=== PATIENT | male | born 1990 | race Caucasian/White ===

== ENCOUNTER 2023-11-11 11:49 | Emergency (ER) | payer BC, SELFPAY ==
[2023-11-11 11:53] VITALS: BP 116/71; PULSE 72; RESP 16; TEMP 36.6; O2SAT 96; BMI 33.2
--- NOTE | 2023-11-11 12:14 | ED_ITS ---
HPI - General Adult General Chief complaint: Dizziness/Vertigo Stated complaint: Vertigo, slight headache, weakness Time Seen by Provider: 11/11/23 11:54 Source: patient Mode of arrival: ambulatory Limitations: no limitations History of Present Illness HPI narrative: 33-year-old male, generally healthy, presents today with an episode of vertigo. 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 He was on the ground for about 30 seconds. He did notice that if he did not move, that the vertigo go away completely and would return slightly if he moved his head from side to side. He was able to get up go into the post office drop off his back edge as intended and then drive home. He states that his vertigo has passed but he feels just slightly lightheaded with a headache that he describes as a 1/10. He denies any diplopia or tinnitus. No vomiting. He did feel slightly nauseated when this occurred. He denies any recent illness, fevers or chills. He does not take any medicat ions. This has never happened to him before. Currently he is asymptomatic but want to discuss what happened to him. Patient does state that he had several drinks last evening. And he drinks 2 energy drinks and cup of coffee at least per day. States that he feels as if he slept well last night. His father has a history of seizure disorder. Related Data Home Medications Medication Instructions Recorded Confirmed No Known Home Medications 11/11/23 11/11/23 Allergies Allergy/AdvReac Type Severity Reaction Status Date / Time amoxicillin Allergy Unknown Verified 11/11/23 11:58 cat dander Allergy Unknown Verified 11/11/23 11:58 guinea pigs Allergy Unknown Uncoded 11/11/23 11:58 Review of Systems Status of ROS: Reports: 10 or more systems reviewed and unremarkable except as noted in History and below Exam Narrative: Exam Narrative: Well-nourished well-developed patient in no acute distress. Alert and oriented. Answers questions appropriately. Mood and affect are appropriate. Thoughts are goal oriented and rational. No tangential or magical thinking noted. Patient speaks in full sentences without needing to catch his breath. Speech is not slurred or pressured. HEENT: Normocephalic atraumatic. Pupils are equally round reactive to light. Extraocular muscles are intact. Conjunctivae are moist without any icterus noted. Moist mucous membranes. Posterior pharynx is normal. Neck is soft without any lymphadenopathy or thyromegaly. No masses are appreciated. TMs are clear bilaterally. Cardiovascular: Heart is regular rate and rhythm S1 and S2 are present without any murmurs. Lungs: Clear to auscultation bilaterally no wheezes rhonchi or rales are appreciated. Patient takes deep breaths without any discomfort. Extremities: Bilateral lower extremities are without edema. Skin: Well perfused without any obvious rashes. Strength is 5/5 of the upper and lower extremities. Reflexes are 2+ and symmetric at the knees. Romberg sign is negative. Cranial nerves 3-12 are normal. There is no nystagmus either horizontally or vertically. Gait is normal. Hallpike maneuver is negative, I cannot elicit any vertigo today. Const: Vital Signs, click to edit/add: Vital Signs - 24 hr 11/11/23 11:53 Temperature 97.9 F Pulse Rate [Pulse Oximeter] 72 Respiratory Rate 16 Blood Pressure [Ri ght Upper Arm] 116/71 Pulse Oximetry 96 Oxygen Delivery Me thod Room Air Course Vital Signs Vital signs: Initial Vital Signs Temperature 97.9 F 11/11/23 11:53 Temperature Source Temporal Artery Scan 11/11/23 11:53 Pulse Rate 72 11/11/23 11:53 Respiratory Rate 16 11/11/23 11:53 Blood Pressure 116/71 11/11/23 11:53 Blood Pressure Mean 86 11/11/23 11:53 Blood Pressure Position Sitting 11/11/23 11:53 Pulse Oximetry 96 11/11/23 11:53 Oxygen Delivery Method Room Air 11/11/23 11:53 Vital Signs Temperature 97.9 F 11/11/23 11:53 Pulse Rate 72 11/11/23 11:53 Respiratory Rate 16 11/11/23 11:53 Blood Pressure 116/71 11/11/23 11:53 Pulse Oximetry 96 11/11/23 11:53 Oxygen Delivery Method Room Air 11/11/23 11:53 Temperature 97.9 F 11/11/23 11:53 Pulse Rate 72 11/11/23 11:53 Respiratory Rate 16 11/11/23 11:53 Blood Pressure 116/71 11/11/23 11:53 Pulse Oximetry 96 11/11/23 11:53 Oxygen Delivery Method Room Air 11/11/23 11:53 Medical Decision Making MDM Narrative Medical decision making narrative: 33-year-old male with an episode of vertigo now resolved. We discussed causes of vertigo. We discussed reducing caffeine intake, increasing water intake. We discussed diet and exercise which she had several questions about. At this point I do not think that the patient is having a stroke which would be the most serious cause of vertigo at this time. Given that he is asymptomatic I do not think that there is any concern for vertebral artery dissection or other life- threatening cause of his symptoms today. Discharge Plan Discharge Clinical Impression: Vertigo Patient Disposition: Home, Self-Care Condition: Improved Additional Instructions: Recommendations: Increase daily water intake Decrease daily caffeine intake Increase cardiovascular exercise -where the heart is pumping and you are sweating- to 30 minutes daily. Follow-up with your primary care provider if this occurs again. Prescriptions: No Action No Known Home Medications Stand Alone Forms: [employer] Info Instructions
== END 2023-11-11 12:36 | disposition home or self-care (01) ==
PROVIDERS: Emergency Provider Family Medicine
DX: M25.512 Pain in left shoulder (principal)
CPT/HCPCS: 99283